=== PATIENT | male | born 1960 | race Caucasian/White ===

== ENCOUNTER 2017-11-24 09:58 | Emergency (ER) | payer OTHER ==
[~2017-11-24] VITALS: Ht 188 cm; Wt 99.8 kg
--- OUTSIDE RECORDS SUMMARY | ~2017-11-24 | XMS | Encounter Summary ---
Demographics + + + | Address | [address] | | | [place] [address] | + + + | Home Phone | | + + + | Preferred Language | Unknown | + + + | Marital Status | | + + + | Sikh Affiliation | Unknown | + + + | Race | Unknown | + + + | Ethnic Group | Unknown | + + + Author + + + | Author | [facility] | + + + | Organization | [facility] | + + + | Address | Unknown | + + + | Phone | Unavailable | + + + Support + + + + + | Name | Relationship | Address | Phone | + + + + + | ConnorZoraida valdez | ECON | [address] | | | | | [place] | | | | | [address] | | + + + + + Care Team Providers + +------+ + | Care Cereal Popper Name | Role | Phone | + +------+ + | Mt Sandy MD | PCP | | + +------+ + Reason for Visit + + + | Reason | Comments | + + + | Establish Care | Hackett transfer | + + + Encounter Details +--------+---------+ + + + | Date | Type | Department | Care Team | Description | +--------+---------+ + + + | 08/07/ | Office | [facility] | Megan Scott, | CAD in [place] artery | | 2018 | Visit | Cardiology [facility] | [address] | (Primary Dx) | | | | [address] | [address], | | | | | [place], [place] | [place] [address] | | | | | [address] | [phone] | | | | | [phone] | | | +--------+---------+ + + + Social History + +-------+ +--------+------+ | Tobacco Use | Types | Packs/Day | Years | Date | | | | | Used | | + +-------+ +--------+------+ | Never Smoker | | | | | + +-------+ +--------+------+ + +---+---+---+ | Smokeless Tobacco: | | | | | Never Used | | | | + +---+---+---+ + + +---------+ + | Alcohol Use | Drinks/We | oz/Week | Comments | | | ek | | | + + +---------+ + | Yes | 5 | 3.0 | occasionally in a week | | | Standard | | | | | drinks or | | | | | | | | | | equivalen | | | | | t | | | + + +---------+ + + + + | Sex Assigned at | Date Recorded | | | | + + + | Not on file | | + + + as of this encounter Last Filed Vital Signs + + + + | Vital Sign | Reading | Time Taken | + + + + | Blood Pressure | 122/76 | 09/24/2017 11:29 AM PDT | + + + + | Pulse | 55 | 09/24/2017 11:29 AM PDT | + + + + | Temperature | - | - | + + + + | Respiratory Rate | - | - | + + + + | Oxygen Saturation | 97% | 09/24/2017 11:29 AM PDT | + + + + | Inhaled Oxygen | - | - | | Concentration | | | + + + + | Weight | 98.2 kg (216 lb 9.6 | 09/24/2017 11:29 AM PDT | | | oz) | | + + + + | Height | 188 cm (6' 2") | 09/24/2017 11:29 AM PDT | + + + + | Body Mass Index | 27.81 | 09/24/2017 11:29 AM PDT | + + + + in this encounter Progress Notes Megan Scott MD - 09/24/2017 11:30 AM PDTFormatting of this note may be different fro m the original. Date of visit: 09/24/2017 Primary Care Physician: MT SANDY CHIEF COMPLAINT: Chief Complaint Patient presents with [facility] HISTORY OF PRESENT ILLNESS: Gallo is 56 y.o. here for coronary artery disease. Has history of PCI to obtuse marginal back in 2010 and the view of chest pain and unstable angina. Since then patient denies any symptoms. Modestly active without any cardiac limitation. He plays basketball 3 times a week at least 45 session without angina, chest pain or shortn ess of breath. Last time seen was [address] Hackett, last ischemic evaluation was in 2014 with no evidence of perfusion defect. Past medical history, SH, FH, and medications were reviewed in the chart. Medications: Outpatient Encounter Prescriptions as of 09/24/2017 Medication Sig Dispense Refill amLODIPine (NORVASC) 5 MG tablet Take 5 mg by mouth daily. Ascorbic Acid (VITAMIN C) 500 MG tablet Take 500 mg by mouth daily as needed. aspirin 325 MG tablet Take 162 mg by mouth daily with breakfast. atorvastatin (LIPITOR) 80 MG tablet Take 80 mg by mouth nightly. folic acid (FOLVITE) 400 MCG tablet Take 400 mcg by mouth daily. nitroGLYCERIN (NITROSTAT) 0.[address] 0.4 mg under the tongue. 1 under tongu e q 5 min, up to 3 tabs in 15 min, no relief, call 911 or go to ER. triamterene-hydrochlorothiazide (DYAZIDE) 37.5-25 MG per capsule Take 1 capsule by mout h every morning. No facility-administered encounter medications on file as of 09/24/2017. Allergies No Known Allergies REVIEW OF SYSTEMS: Constitutional: negative for fatigue. No fever, chills, and rigors. No report of weight ch tom. HEENT: Negative for nosebleeds, ear discharge, nasal congestion or soar throat. Eyes: Negative for visual disturbance, redness, or secretion. Respiratory: Negative for cough, sputum production, hemoptysis, wheezing. Cardiovascular: Negative for orthopnea. No chest pain or tightness. No LE edema. Gastrointestinal: Negative for nausea, vomiting, diarrhea, abdominal pain and blood in stoo l. Genitourinary: Negative for dysuria or hematuria. Musculoskeletal: Negative for myalgias, back pain or arthralgia. Skin: Negative for rash. Neurological: Negative for dizziness. No numbness. No recent falls. No slurred speech. Hematological: No significant bruising. Psychiatric/Behavioral: No depression or anxiety. PHYSICAL EXAM Vital Signs: BP 122/76 (BP Location: Left upper arm, Patient Position: Sitting) | Pulse 55 | Ht 1.88 m (6' 2") | Wt 98.2 kg (216 lb 9.6 oz) | SpO2 97% | BMI 27.81 kg/m GENERAL APPEARANCE: Alert, oriented, cooperative, no distress, appears stated age. HEENT: Extraocular movements were intact. No jaundice. Pupiles round and reactive. NECK: No JVD, lymphadenopathy. Carotid upstrokes normal. No carotid bruit heard. CARDIAC: Regular rhythm and rate. There is normal S1 and S2. No galop. No murmur. CHEST: Normal bilateral symmetrical chest excursion.ackles or wheezing. No evidence of dull ness. ABDOMEN: Soft.No tenderness or guarding. No palpable organs. Active bowel sounds. EXTREMITIES: No lower extremities edema, cyanosis or clubbing. NEURO: Alert and oriented times three with no focal deficit. Cranial nerves are grossly no rmal. SKIN: Warm and dry. No rash. Psych: Normal affect and mood. DATA Lab Results Component Value Date/Time NA 140 05/17/2010 05:13 AM K 3.9 05/17/2010 05:13 AM CO2 23 05/17/2010 05:13 AM BUN 17 05/17/2010 05:13 AM CREATININE 1.3 05/17/2010 05:13 AM Lab Results Component Value Date/Time WBC 8.0 05/17/2010 05:13 AM HGB 14.6 05/17/2010 05:13 AM HCT 42.0 05/17/2010 05:13 AM MCV 92.2 05/17/2010 05:13 AM PLT 195 05/17/2010 05:13 AM Lab Results Component Value Date GLUF 94 05/17/[address] sandy office, showed normal sinus rhythm with no ischemic changes. Last Echo: Last Stress Test, 11/29/2014: 1. Normal study. No evidence of ischemia or infarction. LVEF 68 % 3. Occasional PVC detected. 4. No exercise induced chest pain, good exercise tolerance, 10:31min Dave, 12 METS. Last Cath, 05/16/2010: left main OL, 30-40% mid-LAD, LCx OK, OM1 subtotally ocluded, 70% mid -RCA. LVEF 70%. OM1 stented. Hx PCI/stent: 05/16/2010, OM1 (2.5*12mm Promus LORETTA). Last US carotid: Hx Pacemaker/ICD: no Last Echo: na ASSESSMENT: Patient is 56-year-old male with the following medical problems. 1. Coronary artery disease states post PCI to the obtuse marginal. 2. Nondominant RCA with 70% stenosis. 3. Hypertension currently blood pressures controlled. 4. Dyslipidemia on statin. 5. Asymptomatic sinus bradycardia. Plan: Reviewed patient stress test, angiogram which was reviewed with the patient as well. Patient continues to be active without any cardiac limitation. Blood pressures controlled. Continue on atorvastatin, aspirin and amlodipine. At this time will continue to monitor patient's symptomatology. We will follow-up in one year, will call with any change in symptoms. *This report has been prepared using a voice recognition system. The report was reviewed fo r accuracy, however, sound-alike word errors, addition and/or deletions may occur. If there is any question about this report please contact me. Megan Scott MD, MPHin this encounter Plan of Treatment +--------+---------+ + + + | Date | Type | Specialty | Care Team | Description | +--------+---------+ + + + | 10/01/ | Office | Cardiology | Megan Scott, | | | 2019 | Visit | | MD Marisa Burleson | | | | | | Dr [place], | | | | | | [place] [address] | | | | | | [phone] | | | | | | | | +--------+---------+ + + + as of this encounter Visit Diagnoses + + | Diagnosis | + + | CAD in [place] artery - Primary | + + | Coronary atherosclerosis of [place] coronary artery | + +
--- OUTSIDE RECORDS SUMMARY | ~2017-11-24 | XMS | Encounter Summary ---
Demographics + + + | Address | [address] | | | [place] [address] | + + + | Home Phone | | + + + | Preferred Language | Unknown | + + + | Marital Status | | + + + | Mandaeism Affiliation | Unknown | + + + | Race | Unknown | + + + | Ethnic Group | Unknown | + + + Author + + + | Author | [facility] | + + + | Organization | [facility] | + + + | Address | Unknown | + + + | Phone | Unavailable | + + + Support + + + + + | Name | Relationship | Address | Phone | + + + + + | ConnorZoraida valdez | ECON | [address] | | | | | [place] | | | | | [address] | | + + + + + Care Team Providers + +------+ + | Care Shear Operator Automatic Name | Role | Phone | + [...] Anju | Megan Scott, | CAD in [place] artery | | 2018 | Visit | Cardiology [facility] | [address] | (Primary Dx) | | | | [address] | [address], | | | | | [place], [place] | [place] [address] | | | | | [address] | [phone] | | | | | [phone] | | | +--------+---------+ + + + [...] COMPLAINT: Chief Complaint Patient presents with [facility] HISTORY OF PRESENT ILLNESS: Gallo is 56 [...] 10/01/ | Office | Cardiology | Megan cSott, | | | 2019 | Visit | | MD Marisa Burleson | | | | | | Dr [address], | | | | | | [place] [address] | | | | | | [phone] | | | | | | | | +--------+---------+ + + + as of this encounter Visit Diagnoses + + | Diagnosis | + + | CAD in [place] artery - Primary | + + | Coronary atherosclerosis of [place] coronary artery | + +
--- OUTSIDE RECORDS SUMMARY | ~2017-11-24 | XMS | Clinical Summary ---
Demographics + + + | Address | [address] | | | [place] [address] | + + + | Home Phone | | + + + | Preferred Language | Unknown | + + + | Marital Status | | + + + | Taoism Affiliation | Unknown | + + + | Race | Unknown | + + + | Ethnic Group | Unknown | + + + Author + + + | Author | [facility] | + + + | Organization | [facility] | + + + | Address | Unknown | + + + | Phone | Unavailable | + + + Support + + + + + | Name | Relationship | Address | Phone | + + + + + | ConnorZoraida valdez | ECON | [address] | | | | | [place] | | | | | [address] | | + + + + + Care Team Providers + +------+ + | Care Litigation Claim Representative Name | Role | Phone | + +------+ + | Augustine Funez MD | PP | | + +------+ + Allergies No Known Allergies Current Medications + + +-------+---------+------+------+-------+ | Prescription | Sig. | Disp. | Refills | Star | End | Statu | | | | | | t | Date | s | | | | | | Date | | | + + +-------+---------+------+------+-------+ | amLODIPine | Take 5 mg by mouth | | | | | Activ | | (NORVASC) 5 MG | daily. | | | | | e | | tablet | | | | | | | + + +-------+---------+------+------+-------+ | folic acid | Take 400 mcg by | | | | | Activ | | (FOLVITE) 400 MCG | mouth daily. | | | | | e | | tablet | | | | | | | + + +-------+---------+------+------+-------+ | Ascorbic Acid | Take 500 mg by mouth | | | | | Activ | | (VITAMIN C) 500 MG | daily as needed. | | | | | e | | tablet | | | | | | | + + +-------+---------+------+------+-------+ | atorvastatin | Take 80 mg by mouth | | | | | Activ | | (LIPITOR) 80 MG | nightly. | | | | | e | | tablet | | | | | | | + + +-------+---------+------+------+-------+ | nitroGLYCERIN | Place 0.4 mg under | | | | | Activ | | (NITROSTAT) 0.4 MG | the tongue. 1 under | | | | | e | | SL tablet | tongue q 5 min, up | | | | | | | | to 3 tabs in 15 min, | | | | | | | | no relief, call 911 | | | | | | | | or go to ER. | | | | | | + + +-------+---------+------+------+-------+ | | Take 1 capsule by | | | | | Activ | | triamterene-hydrochl | mouth every morning. | | | | | e | | orothiazide | | | | | | | | (DYAZIDE) 37.5-25 MG | | | | | | | | per capsule | | | | | | | + + +-------+---------+------+------+-------+ | aspirin 325 MG | Take 162 mg by mouth | | | | | Activ | | tablet | daily with | | | | | e | | | breakfast. | | | | | | + + +-------+---------+------+------+-------+ Active Problems + + + | Problem | Noted Date | + + + | CAD in [place] artery | 10/20/2014 | + + + + + | Last Assessment & Plan: 3V-CAD, Hx PCI/stent, LVEF 70%. | | 54yo WM, doing well, he remains active, no exertional chest | | discomfort, shortness of breath, palpitations, or | | lightheadedness. He does however have chest discomfort, it is | | random in occurrence usually brief, and different from what he | | remembers from his coronary stent. Since last seen, nearly 3 | | years ago, no surgical procedures or hospitalizations, however he | | did have routine colonoscopy. ECG benign, labs reviewed. | | Tolerating medications. No changes in therapy. However, we will | | have him undergo exercise tolerance test.Hx CABG: noHx | | PCI/stent: 05/16/2010, OM1 (2.5*12mm Promus LORETTA).Hx Pacemaker/ICD: | | noLast Cath, 05/16/2010: left main OL, 30-40% mid-LAD, LCx OK, | | OM1 subtotally ocluded, 70% mid-RCA. LVEF 70%. OM1 stented.Last | | Echo: naLast Stress Test, 02/07/2011: 11:42min Dave, no chest | | pain, ECG mildly (+), images benign, no ischemia or infarction, | | LVEF 47%.ECG, 09/23/2014: NSR. | + + + + + | Essential hypertension | 10/20/2014 | + + + + + | Last Assessment & Plan: Hypertension, controlled, continue | | current meds at current doses (amlodipine, Dyazide). | + + + + + | HLD (hyperlipidemia) | 10/20/2014 | + + + + + | Last Assessment & Plan: Hyperlipidemia, at goal, continue | | current meds at current dose (atorvastatin). Recent labs | | reviewed with patient.Labs, 09/23/2014: T Chol: 113, LDL-Chol: 65, | | HDL-Chol: 34, Tri Liver enzymes | | NML, K: 3.6, BUN/Cr: 16/1.2 (GFR 63), glu: 88 | | TSH: 1.69, ESR: 3, WBC: 7.0, H/H: 16.2/46.1, plt: 217 | + + Encounters +--------+ + + + + | Date | Type | Specialty | Care Team | Description | +--------+ + + + + | 09/24/ | Office | | Megan Mir, | CAD in [place] artery | | 2018 | Visit | | MD | (Primary Dx) | +--------+ + + + + | 09/17/ | Documentati | | Ngozi Cuenca | Labs Only | | 2018 | on Only | | [facility] | (07/29/2017) | +--------+ + + + + from Last 3 Months Family History + + +------+ + | Medical History | Relation | Name | Comments | + + +------+ + | Heart disease | Father | | | + + +------+ + | Heart disease | Mother | | | + + +------+ + | High cholesterol | Mother | | | + + +------+ + | Hypertension | Mother | | | + + +------+ + + +------+ + + | Relation | Name | Status | Comments | + +------+ + + | Father | | | heart disease, Atrial Fibrillation | | | | (Age | | | | | 68) | | + +------+ + + | Mother | | | heart disease, CHF, triple bypass surgery | | | | (Age | | | | | 87) | | + +------+ + + Social History + +-------+ +--------+------+ [...] on file | | + + + Last Filed Vital Signs + + + [...] + + + | Respiratory Rate | 16 | 2014 2:27 PM PDT | + + + + | Oxygen [...] AM PDT | + + + + Plan of Treatment +--------+---------+ + + + | Date | Type | Specialty | Care Team | Description | +--------+---------+ + + + | 10/01/ | Office | | Megan Mir, | | | 2019 | Visit | | MD Marisa Burleson | | | | | | Dr [place], | | | | | | [place] [address] | | | | | | [phone] | | | | | | | | +--------+---------+ + + + + + + + + | Health Maintenance | Due Date | Last Done | Comments | + + + + + | Vaccine: | | | | | Dtap/Tdap/Td (1 - | 8 | | | | Tdap) | | | | + + + + + | Vaccine: | | | | | Pneumococcal 19-64 | 8 | | | | (PPSV23 only) Medium | | | | | Risk (1 of 1 - | | | | | PPSV23) | | | | + + + + + | Colon Cancer | | | | | Screening | 9 | | | | (Colonoscopy) | | | | + + + + + | Vaccine: Influenza | | | | | (#1) | 8 | | | + + + + + Results Not on filefrom Last 3 Months Insurance + +--------+ +------+-------+---------+ | Payer | Benefi | Subscriber | Type | Phone | Address | | | t Plan | ID | | | | | | / | | | | | | | Group | | | | | + +--------+ +------+-------+---------+ | [employer] - | FIRST | [id number] | | | | | [place] | HEALTH | 00 | | | | | | - | | | | | | | PACIFI | | | | | | | [place]OURC | | | | | | | E | | | | | + +--------+ +------+-------+---------+ + +--------+ +--------+ + + | Guarantor Name | Accoun | Relation to | Date | Phone | Billing Address | | | t Type | Patient | of | | | | | | | | | | + +--------+ +--------+ + + | SHADIA RENE | Person | Self [birth year] Home: | [address] | | | [place] | | [phone] [place] | | | [place] | | | [phone] | [phone] | + +--------+ +--------+ + +
--- OUTSIDE RECORDS SUMMARY | ~2017-11-24 | XMS | Clinical Summary ---
Demographics + + + | Address | [address] | | | [place] [address] | + + + | Home Phone | | + + + | Preferred Language | Unknown | + + + | Marital Status | | + + + | Episcopal Affiliation | Unknown | + + + | Race | Unknown | + + + | Ethnic Group | Unknown | + + + Author + + + | Author | [facility] | + + + | Organization | [facility] | + + + | Address | Unknown | + + + | Phone | Unavailable | + + + Support + + + + + | Name | Relationship | Address | Phone | + + + + + | ConnorZoraida valdez | ECON | [address] | | | | | [place] | | | | | [address] | | + + + + + Care Team Providers + +------+ + | Care Associate Principal Name | Role | Phone | + [...] | + + + | CAD in [place] artery | 10/20/2014 | + + + [...] | | Megan Mir, | CAD in [place] artery | | 2018 | Visit | [...] | | | | | | [place] [address] | | | | | | [phone] | | | | | | | [...] | [facility] | [id number] | | | | | [place] | [...] | [place] | | | [address] | [phone] | + +--------+ +--------+ + +
--- OUTSIDE RECORDS SUMMARY | ~2017-11-24 | XMS | Encounter Summary ---
Demographics + + + | Address | [address] | | | [place] [address] | + + + | Home Phone | | + + + | Preferred Language | Unknown | + + + | Marital Status | | + + + | Orthodoxy Affiliation | Unknown | + + + | Race | Unknown | + + + | Ethnic Group | Unknown | + + + Author + + + | Author | [facility] | + + + | Organization | [facility] | + + + | Address | Unknown | + + + | Phone | Unavailable | + + + Support + + + + + | Name | Relationship | Address | Phone | + + + + + | ConnorZoraida valdez | ECON | [address] | | | | | [place] | | | | | [address] | | + + + + + Care Team Providers + +------+ + | Care Timber Incisor Operator Name | Role | Phone | + +------+ + | Augustine Funez MD | PCP | | + +------+ + Reason for Visit + + + | Reason | Comments | + + + | Labs Only | 07/29/2017 | + + + Encounter Details +--------+ + + + + | Date | Type | Department | Care Team | Description | +--------+ + + + + | 09/17/ | Miranda Rene | Ngo[facility]a | Labs Only | | 2018 | on Only | Cardiology Victor Manuel | [facility] | (07/29/2017) | | | | [address] | | | | | | [place] | | | | | | [address] | | | | | | [phone] | | | +--------+ + + + + Social History + +-------+ [...] + + + as of this encounter Plan of Treatment +--------+---------+ + + + | Date | Type | Specialty | Care Team | Description | +--------+---------+ + + + | 10/01/ | Office | Cardiology | Megan Mir, | | | 2019 | Visit | | MD Marisa Burleson | | | | | | Dr [address], | | | | | | [place] [address] | | | | | | [phone] | | | | | | | | +--------+---------+ + + + as of this encounter Visit Diagnoses Not on filein this encounter"
--- OUTSIDE RECORDS SUMMARY | ~2017-11-24 | XMS | Encounter Summary ---
Demographics + + + | Address | [address] | | | [place] [address] | + + + | Home Phone | | + + + | Preferred Language | Unknown | + + + | Marital Status | | + + + | Alevism Affiliation | Unknown | + + + | Race | Unknown | + + + | Ethnic Group | Unknown | + + + Author + + + | Author | [facility] | + + + | Organization | [facility] | + + + | Address | Unknown | + + + | Phone | Unavailable | + + + Support + + + + + | Name | Relationship | Address | Phone | + + + + + | ConnorZoraida valdez | ECON | [address] | | | | | [place] | | | | | [address] | | + + + + + Care Team Providers + +------+ + | Care Special Education Secretary Name | Role | Phone | + [...] [place] | | | | | | [address] | | | | | | [phone] | | | +--------+ + + + [...] [place], | | | | | | [place] [address] | | | | | | [phone] | | | | | | | | +--------+---------+ + + + as of this encounter Visit Diagnoses Not on filein this encounter"
[~2017-11-24 09:58] MED LIST: ASPIRIN325 MG PO; DURLAZA162.5 MG PO; LIPITOR80 MG PO; NITROGLYCERIN0.4 MG SL; NORCO 5-325 TA1 EACH PO; NORVASC5 MG PO; TRIAMTERENE-HC1 EAC3 PO
== END 2017-11-24 10:15 | disposition home or self-care (01) ==
LOC: ED 09:58
DX: S61.211A Laceration without foreign body of left index finger without damage to nail, initial encounter (principal); W26.0XXA Contact with knife, initial encounter